=== PATIENT | male | born 1970 | race Caucasian/White ===

== ENCOUNTER 2017-04-19 08:16 | Day surgery (SDC) | payer OTHER ==
[2017-04-18 11:44] LABS: BASOPHILS ABSOLUTE AUTO 0.03 K/mm3 (0.00-0.23); BASOPHILS PERCENT AUTO 0 % (0-2); EOSINOPHILS PERCENT AUTO 1 % (0-6); Hemoglobin 17.6 g/dL (13.5-17.5); IMMATURE GRAN ABSOLUTE AUTO 0.04 K/mm3 (0.00-0.10); IMMATURE GRAN PERCENT AUTO 1 % (0-1); LYMPHOCYTES ABSOLUTE AUTO 1.43 K/mm3 (0.84-5.20); LYMPHOCYTES PERCENT AUTO 20 % (21-46); MONOCYTES ABSOLUTE AUTO 0.59 K/mm3 (0.16-1.47); MONOCYTES PERCENT AUTO 8 % (4-13); Mean Corpuscular HGB 29.8 pg (26.0-34.0); Mean Corpuscular HGB Conc 33.8 g/dL (31.5-36.5); Mean Corpuscular Volume 88 fL (80-100); Mean Platelet Volume 10.5 fL (9.1-12.4); NEUTROPHILS ABSOLUTE AUTO 5.15 K/mm3 (1.96-9.15); NEUTROPHILS PERCENT AUTO 70 % (41-73); Platelet Count 279 K/mm3 (150-400); RDW Coefficient Variation 12.9 % (11.7-14.2); RDW Standard Deviation 41.3 fL (35.1-46.3); Red Blood Cell Count 5.91 M/mm3 (4.30-5.90); White Blood Cell Count 7.34 K/mm3 (4.00-11.30)
[2017-04-18 11:58] LABS: Anion Gap 9 mmol/L (6-16); Blood Urea Nitrogen 24 mg/dL (8-24); Bun/Creatinine Ratio 20.5 (12.0-20.0); CO2, Blood 29 mmol/L (21-32); Calcium, Blood 9.3 mg/dL (8.5-10.1); Chloride, Blood 100 mmol/L (98-108); Creatinine, Blood 1.17 mg/dL (0.60-1.20); Glomerular Filtration Rate >60 (60-); Glucose, Blood 100 mg/dL (70-99); Potassium, Blood 3.8 mmol/L (3.5-5.5); Sodium, Blood 138 mmol/L (136-145)
[~2017-04-19] VITALS: Ht 172.7 cm; Wt 107.1 kg
[~2017-04-19 08:16] MED LIST: ALBU90I INH; ALBU90OI INH; AMITRIPTYLINE; ARIP15 PO; BENTYL20 MG PO; BENZ100A PO; BUSP10 PO; BUSP15 PO; BUSP5 PO; CEPH500 PO; CLON1 PO; CLONAZAPAM; CRUTCH4 USE; CYCL10 PO; D3-20002000 UNIT PO; DIAZ5 PO; DIPATR PO; FENO145 PO; FISH1000 PO; GABA400 PO; GEMF600 PO; HCTZ; HYDACE10B PO; HYDACE5 PO; HYDACE5325 PO; HYDCHL12.5 PO; HYDCHL25 PO; HYDPAM50 PO; IBUHYD PO; IBUP400 PO; IBUP600 PO; IBUP800 PO; IBUPROFEN; KETO10 PO; LISI10 PO; LISI20 PO; LORA1 PO; LOVA40 PO; LOVAZA; META800 PO; MULVITA PO; MVI; NAPR250 PO; NAPR500 PO; NAPR550 PO; NORCO; OLAN7.5; OMEG1CAP30 PO; OMEP40CA12 PO; OXYACE5T PO; PARO10; PARO20 PO; PAXIL; PRED20 PO; PROM25 PO; Pindolol5 MG; Prednisone20 MG PO; QUET100 PO; QUET25 PO; RXCYCL10 PO; RXHYD5325 PO; RXHYDACE PO; RXMETA800 PO; RXNAPNA550 PO; RXPROM25 PO; RXTRAM50 PO; SIMV10 PO; SUCR1 PO; SULI150 PO; SULTRIDS PO; TAMS.4ER PO; TRAM50 PO; TRAZ50 PO; Ultram50 MG PO; Veetids 500500 MG PO; Zofran Odt4 MG SL
[2017-04-19] MEDS ORDERED: DICL25ER (09:14)
[2017-04-19] MEDS ORDERED: TAMS.4ER (09:14)
[2017-04-19] MEDS ORDERED: Omeprazole20 M1 (09:14)
[2017-04-19] MEDS ORDERED: VENL25 (09:14)
[2017-04-19] MEDS ORDERED: BUSP5 (09:14)
== END 2017-04-19 11:50 | disposition home or self-care (01) ==
LOC: ORSCSDS 08:16
PROVIDERS: Podiatrist Foot & Ankle Surgery
PROC: 0QSN04Z Reposition Right Metatarsal with Internal Fixation Device, Open Approach (ICD-10-PCS; principal; 2017-04-19 09:45)
DX: S92.354A Nondisplaced fracture of fifth metatarsal bone, right foot, initial encounter for closed fracture (principal); Z01.818 Encounter for other preprocedural examination; I10 Essential (primary) hypertension; K21.9 Gastro-esophageal reflux disease without esophagitis; Z79.899 Other long term (current) drug therapy
CPT/HCPCS: 36415; 80048; 85025; 93005; 93010; C1713; J0171; J0690; J1100; J1885; J2250; J2405; J3010

== ENCOUNTER 2018-04-08 13:58 | Day surgery (SDC) | payer OTHER ==
[~2018-04-08] VITALS: Ht 172.7 cm; Wt 105.3 kg
[~2018-04-08 13:58] MED LIST changes: +BUSP5; +DICL25ER; +ESCI10 PO; +Omeprazole20 M1; +TAMS.4ER; +VENL25
--- NOTE | 2018-04-08 15:43 | NUR ---
04/08/18 1543 Sunita Concepcion SMALL HEALING ABRASION NOTED ON DORSAL SIDE OF WRIST.
--- NOTE | 2018-04-08 16:48 | NUR ---
04/08/18 1648 Ena Dinh PT INTO RECLINER AT 1645, STEADY DURING TRANSFER. AT CHAIRSIDE. VSS. PT TOLERATING PO NOURISHMENT WELL AND DENIES PAIN/NAUSEA AT THIS TIME. PT TALKATIVE AND LAUGHING WITH AND STAFF. CALL LIGHT IN REACH.
== END 2018-04-08 17:29 | disposition home or self-care (01) ==
LOC: ORSCSDS 13:58
PROVIDERS: Orthopaedic Surgery
PROC: 0RBJ4ZZ Excision of Right Shoulder Joint, Percutaneous Endoscopic Approach (ICD-10-PCS; principal; 2018-04-08 15:30)
PROC: 0PB94ZZ Excision of Right Clavicle, Percutaneous Endoscopic Approach (ICD-10-PCS; principal; 2018-04-08 15:30)
DX: M19.011 Primary osteoarthritis, right shoulder (principal); M75.51 Bursitis of right shoulder; S43.431A Superior glenoid labrum lesion of right shoulder, initial encounter; I10 Essential (primary) hypertension; K21.9 Gastro-esophageal reflux disease without esophagitis; E66.9 Obesity, unspecified; Z68.35 Body mass index [BMI] 35.0-35.9, adult; F41.8 Other specified anxiety disorders; Z79.899 Other long term (current) drug therapy
CPT/HCPCS: J0171; J1100; J1885; J2250; J2405; J3010; J7120